=== PATIENT | female | born 1960 | race Caucasian/White ===

== ENCOUNTER 2025-04-13 05:25 | Day surgery (SDC) | payer MEDICARE, BC ==
[2025-04-12 10:52] LABS: MEAN PLATELET VOLUME 8.5 FL (7.4-10.4); PRE OP HEMATOCRIT 36.9 % (35.0-45.0); PRE OP HEMOGLOBIN 12.4 g/dL (12.0-16.0); PRE OP PLATELET COUNT 333 X10'3 (140-440); PRE OP WHITE BLOOD COUNT 6.4 10'3 (4.8-10.8); RED CELL DISTRIBUTION WIDTH 13.9 % (11.5-14.5)
--- NOTE | 2025-04-12 11:00 | ELECTROCARDIOGRAPH REPORT ---
[facility] Test Date: 2025-04-12 Test Time: 10:57:47 Pat Name: MURIEL OTERO Department: [facility]-PRE-OP Patient ID: [id number] Room: Gender: F [employer]: gurinder : 1960 Requested By: JORDAN LOZANO Order Number: [id number] Reading MD: Dr. CHANELLE Conteh Measurements Intervals [place] Rate: 73 P: 35 SC: 131 QRS: 83 QRSD: 94 T: 57 QT: 390 QTc: 430 Interpretive Statements Sinus rhythm Borderline right axis deviation Electronically Signed On 04-12-2025 17:16:[address] CHANELLE Conteh Please click the below link to view image of tracing.
[2025-04-12 11:12] LABS: CREATININE 0.73 MG/DL (0.40-0.90); PRE OP ALT 17 U/L (30-65); PRE OP ANION GAP 8 (8-16); PRE OP AST 16 U/L (10-37); PRE OP BILIRUB, TOTAL 0.6 MG/DL (0.0-1.0); PRE OP GLUCOSE 84 MG/DL (70-104); PRE OP POTASSIUM 3.7 MMOL/L (3.4-5.1); PRE OP SODIUM 141 MMOL/L (135-145); TOTAL CARBON DIOXIDE 27.8 MMOL/L (24-32); eGFR 80 ML/MIN
[~2025-04-13] VITALS: Ht 160 cm; Wt 74.5 kg
[2025-04-13] VITALS (8 sets, daily range): BP systolic 109–134; BP diastolic 64–81; PULSE 74–104; RESP 14–16; TEMP 99; O2SAT 96–100
[~2025-04-13 05:25] MED LIST: ALPR0.5T8 PO; AMLO5TAB16 PO; CALC600T14 PO; CETI10CA PO; CHOL100046 PO; OMEP20CA16 PO; PROG200C11 PO
[2025-04-13] MEDS ORDERED: glycopyrrolate 0.2mg/ml inj IV ONE (05:26)
[2025-04-13] MEDS ORDERED: neostigmine in sterile water inj 5 MG/5 ML syringe IJ ONE (05:26)
[2025-04-13] MEDS ORDERED: clindamycin-Cleocin 900mg/D5W 50 ML IV ONE (05:30)
[2025-04-13] MEDS: INDOCYANINE GREEN 25 MG/10 ML VIAL IV ONE (05:59)
[2025-04-13] MEDS: ringers solution, lacted 1,000 ML IV SCH (05:59)
[2025-04-13] MEDS ORDERED: LIDOcaine 1% 30ml preserv. free vial ONE (06:44)
[2025-04-13] MEDS ORDERED: BUPIVAcaine/PF 2.5mg/ml (0.25%) 10ml vial ONE (06:44)
[2025-04-13] MEDS ORDERED: BUPIVAcaine 2.5mg/ml inj 50ml vial (contains preservative) ONE (07:02)
[2025-04-13] MEDS ORDERED: ondansetron/PF 4mg/2ml inj IV PRN (07:25)
[2025-04-13] MEDS ORDERED: ringers solution, lacted 1,000 ML IV SCH (07:25)
[2025-04-13] MEDS ORDERED: enalaprilat 1.25mg/ml 2ml vial IV PRN (07:25)
[2025-04-13] MEDS ORDERED: labetalol 20mg/4ml (5mg/ml) syringe IV PRN (07:25)
[2025-04-13] MEDS ORDERED: morphine 4 MG/ML inj SYRINge IV PRN (07:25)
[2025-04-13] MEDS ORDERED: fentaNYL/PF 50MCG/1 ML 2ML syringe IV PRN ×2 (07:25)
[2025-04-13] MEDS ORDERED: HYDROmorphone/PF 0.2 MG/ML SYRINGE IV PRN ×2 (07:25)
[2025-04-13] MEDS ORDERED: midazolam 1 mg/ML 2ml injection ONE (07:36)
[2025-04-13] MEDS ORDERED: fentaNYL/PF 50MCG/1 ML 2ML syringe ONE (07:36)
--- NOTE | 2025-04-13 07:41 | HISTORY AND PHYSICAL ---
History & Physical Providers to CC CC: JORDAN LOZANO MD ~ History of Present Illness Reason for Admit\Complaint: Symptomatic cholelithiasis History of Present Illness Interval history and physical exam Patient here today for elective cholecystectomy for symptomatic cholelithiasis She denies any change in her past medical history since she was seen in the office (please see previous history and physical exam for all pertinent details) She is scheduled for robotic assisted laparoscopic cholecystectomy Allergies: Coded Allergies: Sulfa (Sulfonamide Antibiotics) (Verified Allergy, Unknown, RASH, 04/12/25) Tetracyclines (Verified Adverse Reaction, Unknown, STOMACH ACHE, 04/12/25) ampicillin (Verified Adverse Reaction, Unknown, STOMACH ACHE, 04/12/25) Home Medications Home Medications Active Reported Progesterone (Progesterone,Micronized) 200 Mg Capsule 2 Cap PO DAILY 30 Days Omeprazole 20 Mg Capsule.dr 1 Cap PO DAILY 30 Days Calcium (Calcium Carbonate) 600 Mg Tablet 2 Tab PO DAILY 30 Days Zyrtec (Cetirizine Hcl) 10 Mg Capsule 1 Cap PO DAILY 30 Days Vitamin D3 (Cholecalciferol (Vitamin D3)) 25 Mcg (1000 Unit) Capsule 2 Cap PO DAILY 30 Days Alprazolam 0.5 Mg Tablet 1 Tab PO DAILY PRN Amlodipine Besylate 5 Mg Tablet 1 Tab PO DAILY ROS ROS Reviewed and negative with the exception of those found in the history of present illness Exam General: 64-year-old female in no acute distress Chest: Lungs clear to auscultation bilaterally Cardiovascular: Regular rate and rhythm without murmur Abdomen: Soft and nondistended Diagnostic Data Last Recorded Lab Results: 04/12/25 1036 04/12/25 1036 Problems: (1) Symptomatic cholelithiasis Assessment & Plan: The risks, benefits, and alternatives to a robotic assisted laparoscopic possible open cholecystectomy were discussed with the patient. Risks include, but are not limited to, bleeding, infection, injury to intra- abdominal structures, injury to the biliary tree, postoperative bile leak and retained common bile duct stone. Patient verbalized understanding and wishes to proceed with surgery. We will do so today as scheduled JORDAN LOZANO MD Apr 13, 2025 07:41
[2025-04-13] MEDS: LIDOcaine 1% 30ml preserv. free vial IJ ONE (07:52)
[2025-04-13] MEDS: BUPIVAcaine/PF 2.5 mg/ml (0.25%) 30ml vial IJ ONE (07:52)
[2025-04-13] MEDS ORDERED: propofol inj 20 ML IV ONE (07:53)
[2025-04-13] MEDS ORDERED: LIDOcaine 2% (20mg/ml) 5ml vial ONE (07:53)
[2025-04-13] MEDS ORDERED: rocuronium 10mg/ml inj IV ONE (07:53)
[2025-04-13] MEDS ORDERED: ondansetron/PF 4mg/2ml inj ONE (07:54)
[2025-04-13] MEDS ORDERED: acetaminophen 1,000mg/100ml IV 100 ML IV ONE (07:54)
[2025-04-13] MEDS ORDERED: dexamethasone sod phosphate 4mg/ml inj. ONE (07:54)
--- NOTE | 2025-04-13 08:53 | OPERATIVE REPORT ---
Operative Report Providers to CC CC: JOHNATHAN LOZANO MD ~ Date of Procedure: Apr 13, 2025 Pre-Operative Diagnosis: Symptomatic cholelithiasis Post-Operative Diagnosis SAME as PRE-Op Procedure Performed Robotic assisted, laparoscopic cholecystectomy Surgeon: Johnathan Lozano MD FACS Trainmaster None Anesthesiologist: Norbert Chan Type of Anesthesia: General Findings: Cholelithiasis There was clear visualization of the critical view of safety with confirmation using fluorescent cholangiography/firefly Complications None Prosthetics\Implants used: None Estimated Blood Loss: Minimal Specimen Removed: Gallbladder Description of Procedure: Patient was brought to the operating room and identified by the nursing staff and the attending physician. Patient was placed supine and general anesthesia was induced. A supraumbilical, midline incision was made, long enough to accommodate a 12 mm Huggins port. Huggins technique was used to gain entry into the abdomen. Stay sutures were placed in the Huggins port anchored to the fascia. Abdomen was insufflated without incident. Laparoscope was inserted and the abdomen surveyed. Secondary, 8.5 mm robotic trochars were placed in the left upper quadrant and right lateral abdomen. Robotic arm was docked to the patient. Robotic instruments were guided intra- abdominally under laparoscopic visualization. Gallbladder was readily identified. Firefly showed filling of the gallbladder consistent with no acute cholecystitis/cystic duct obstruction. Fundus of the gallbladder was grasped and retracted over the dome of the liver. Infundibulum was retracted towards the right lower quadrant. Firefly technology was used to obtain a fluorescent cholangiogram and visualize the pertinent anatomy. Cystic duct was clearly visualized. Peritoneum overlying the triangle was incised with hook electrocautery. This allowed for circumferential dissection of the cystic duct and artery. Critical view of safety was obtained. Duct and artery were then clipped with hemo-lock clips and both structures divided. Gallbladder was retracted laterally and dissected out of the gallbladder fossa. Gallbladder was set aside and fluorescent cholangiogram of the gallbladder fossa was used to confirm no evidence of bile leak. Gallbladder was placed in a laparoscopic retrieval bag. Secondary trochars were removed and the abdomen allowed to deflate. Huggins port was removed with the specimen in its retrieval bag. Fascia at the umbilical port site was closed with 0 Vicryl sutures. Skin was closed with About 40 cc of local anesthetic was used during the case. Sterile dressings were applied. Patient was awakened and taken to the postanesthesia care unit in stable condition. Counts repoted as correct: Yes JOHNATHAN LOZANO MD Apr 13, 2025 08:52
== END 2025-04-13 09:40 | disposition home or self-care (01) ==
LOC: PAS 05:25
PROVIDERS: ATTEND Surgery
DX: K80.10 Calculus of gallbladder with chronic cholecystitis without obstruction (principal); I10 Essential (primary) hypertension; Z79.890 Hormone replacement therapy; Z79.899 Other long term (current) drug therapy; Z90.710 Acquired absence of both cervix and uterus; Z90.721 Acquired absence of ovaries, unilateral; Z98.891 History of uterine scar from previous surgery; Z98.890 Other specified postprocedural states; Z88.0 Allergy status to penicillin; Z88.1 Allergy status to other antibiotic agents; Z88.2 Allergy status to sulfonamides
CPT/HCPCS: 36415; 47563; 80053; 82948; 85025; 88304; 93005; A4215; A4618; A7000; J0131; J1100; J2003; J2250; J2405; J2704; J2710; J3010; J3490; J7030; J7120; Z7506; Z7508; Z7512; Z7610